=== PATIENT | male | born 1940 | race Caucasian/White ===

== ENCOUNTER 2018-11-28 20:09 | Inpatient (IN) ==
[2018-11-28] MEDS ORDERED: IOPAMIDOL 100 ML BOTTLE IV ONE (20:10)
--- NOTE | 2018-11-28 20:26 | Emergency Department Note ---
Weakness HPI - General Chief complaint: Weakness Stated complaint: weakness and lathargic Time Seen by Provider: 11/28/18 20:11 Source: patient, family, EMS Mode of arrival: EMS Limitations: no limitations - History of Present Illness HPI Narrative: 77-year-old male who was brought in for confusion and weakness by EMS. Had a fever of 103 per the paramedics tympanic thermometer. Notes balance issues and trouble walking. Has history of prior CABG. Confusion noted that he was unable to say his own birthday or know where he was etc. Profoundly tired and wanted to lay down. He is not complaining of pain anywhere and is not having trouble breathing; no cough or congestion - Related Data Home Medications Medication Instructions Recorded Confirmed losartan 50 mg-hydrochlorothiazide 1 tab PO QDAY 04/19/17 11/28/18 12.5 mg tablet aspirin 81 mg tablet 81 mg PO QDAY 05/06/17 11/28/18 atorvastatin 40 mg tablet 40 mg PO QHS tab 05/06/17 11/28/18 cholecalciferol (vitamin D3) 2,000 2,000 unit PO DAILY cap 05/06/17 11/28/18 unit capsule ibuprofen 200 mg tablet 200 mg PO BID tab 05/06/17 11/28/18 metoprolol succinate ER 25 mg 50 mg PO QDAY 05/06/17 11/28/18 tablet,extended release 24 hr saw palmetto 1,200 mg PO BID 05/06/17 11/28/18 spironolactone 25 mg tablet 25 mg PO QDAY 05/06/17 11/28/18 amlodipine 10 mg tablet 5 mg PO HS 02/15/18 11/28/18 doxazosin 1 mg tablet 1 mg PO HS 11/08/18 11/28/18 Fluticasone Propionate [Flonase] 2 spray INTRANASAL DAILYP PRN 11/28/18 11/28/18 metFORMIN HCL [Glucophage Xr] 1,000 mg PO HS 11/28/18 11/28/18 Previous Rx's Medication Instructions Recorded Glucometer #1 ea 05/18/17 blood sugar diagnostic strips See Dose Instructions .ROUTE 07/06/18 .MEDSUPPLY #100 each lancets 30 gauge See Rx Instructions .ROUTE 10/31/18 .COMPLEX #100 unspecified Allergies Allergy/AdvReac Type Severity Reaction Status Date / Time Sulfa (Sulfonamide Allergy Unknown Verified 11/08/18 09:57 Antibiotics) alcohol-topical Allergy Unknown Rash, Uncoded 11/08/18 09:57 itching dairy Allergy Unknown Sneezing Uncoded 11/08/18 09:57 Review of Systems All systems ED: reviewed and negative except as stated. Past Medical History - Past Medical History [facility] Narrative: Family History (Last Updated 05/06/17 @ 13:22 by Emily Ortega) Grandfather Cancer Father Heart attack Mother Hypertension, essential Stroke Sister Hypertension, essential Migraine Son Thyroid disease Medical History (Last Reviewed 02/15/18 @ 09:32 by Milagro Westfall DO) Type 2 diabetes mellitus (Chronic) Chronic rhinitis (Chronic) Obesity (Chronic) Coronary artery disease (Chronic) Hyperlipidemia (Chronic ~1984) Hypertension, essential (Chronic ~1984) Heart trouble (Chronic ~2001) Gallbladder problem (Chronic ~1989) Arthritis (Chronic ~2001) Past Surgical History (Last Updated 05/06/17 @ 13:07 by Emily Ortega) History of cholecystectomy (Chronic) Hx of laparoscopic gastric banding (Chronic) 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 Normocephalic atraumatic. Conjunctive are clear sclerae white and icteric. Extraocular movements are intact pupils are equal round reactive to light. No nasal discharge or congestion. Oropharynx pink and moist. Neck is supple without lymphadenopathy thyromegaly or carotid bruit. Heart is tachycardic but I cannot hear a murmur lungs are clear to auscultation bilaterally but auscultation limited by body habitus. Abdomen is soft nontender nondistended. +1-2 pedal edema bilaterally which is chronic. He is alert but not fully oriented. He can answer some questions but other he defers to his family which is present for the interview and exam Temp probe Bill was placed. Dark yellow urine in the bag Limitations: no limitations Course Vital Signs Temperature 102.2 F H 11/28/18 20:10 Respiratory Rate 26 H 11/28/18 20:10 Blood Pressure 184/66 11/28/18 20:10 Pulse Oximetry (%) 96 11/28/18 20:10 Temperature 102.8 F H 11/28/18 23:28 Pulse Rate 91 H 11/29/18 00:31 Respiratory Rate 25 H 11/29/18 00:31 Blood Pressure 126/59 11/29/18 00:31 Pulse Oximetry (%) 93 11/29/18 00:31 Weakness - Lab Data Lab results reviewed: Yes I reviewed the patient's lab results. Result diagrams: 11/28/18 20:45 11/28/18 20:45 Lab Results 11/28/18 11/28/18 11/28/18 Range/Units 20:45 20:45 20:45 WBC 12.2 H (4.5-11.0) K/mcL RBC 4.15 L (4.50-5.90) M/mcL Hgb 13.5 (13.5-16.5) g/dL Hct 40.0 L (41.0-55.0) % POC Hct 40.0 L (41.0-55.0) % MCV 96.3 (80.0-100.0) fL MCH 32.6 (26.0-34.0) pg MCHC 33.8 (31.0-36.0) g/dL RDW 13.2 (11.5-14.5) % Plt Count 263 (140-440) K/mcL MPV 7.5 (7.4-10.4) fL Gran % 89.2 H (38.0-78.0) % Lymph % (Auto) 4.0 L (15.5-49.0) % [place] % (Auto) 6.6 (1.0-12.0) % Eos % (Auto) 0.2 (0.0-7.0) % Baso % (Auto) 0 (0.0-2.0) % Gran # 10.8 H (1.8-8.0) K/mcL Lymph # (Auto) 0.5 L (1.5-4.8) K/mcL [place] # (Auto) 0.8 (0.1-0.9) K/mcL Eos # (Auto) 0 (0.0-0.7) K/mcL Baso # (Auto) 0 (0.0-0.3) K/mcL VBG Lactic Acid (0.5-2.0) mmol/L POC Sodium 137 (133-145) mmol/L Sodium 136 (133-145) mmol/L POC Potassium 4.0 (3.3-5.1) mmol/L Potassium 4.0 (3.3-5.1) mmol/L POC Chloride 102 (96-108) mmol/L Chloride 98 (96-108) mmol/L Carbon Dioxide 24 (22-30) mmol/L POC Total CO2 24 (22-30) mmol/L Anion Gap 14.0 (8-16) POC BUN 22 (8-23) mg/dl BUN 20 (8-23) mg/dl Creatinine 1.2 (0.7-1.2) mg/dl POC Creatinine 1.2 (0.7-1.2) mg/dl GFR Calculation 59 Glucose 178 H (70-105) mg/dL POC Glucose 183 H (70-105) mg/dL Calcium 8.9 (8.6-10.4) mg/dl POC WB Ioniz Calcium 1.10 L (1.16-1.32) mmol/L Total Bilirubin 0.6 (0.0-1.0) mg/dL AST 39 H (0-37) U/l ALT 45 H (0-40) U/l Alkaline Phosphatase 103 (39-117) U/L Myoglobin 33 (28-72) ng/ml Troponin T < 0.01 (0-0.03) ng/ml Total Protein 7.0 (5.9-8.4) gm/dL Albumin 4.1 (3.2-5.2) gm/dL Globulin 2.9 (2.2-3.7) gm/dL Albumin/Globulin Ratio 1.4 (1.0-2.3) Procalcitonin (<0.10) ng/mL Urine Color Urine Appearance Urine pH (5.0-9.0) Ur Specific [place] (1.000-1.035) Urine Protein (NEG) mg/dL Urine Glucose (UA) (NEG) mg/dL Urine Ketones (NEG) mg/dL Urine Occult Blood (<0.03) mg/dL Urine Nitrate (NEG) Urine Bilirubin (NEG) mg/dL Urine Urobilinogen (NEG) mg/dL Ur Leukocyte Esterase (NEG) /uL Urine RBC (0-1) /hpf Urine WBC (0-4) /hpf Ur Squamous Epith Cells (0-4) /hpf Urine Bacteria (0) /hpf Urine Mucus (0) /hpf Ur Culture Indicated? 11/28/18 11/28/18 11/28/18 Range/Units 20:45 20:45 22:04 WBC (4.5-11.0) K/mcL RBC (4.50-5.90) M/mcL Hgb (13.5-16.5) g/dL Hct (41.0-55.0) % POC Hct (41.0-55.0) % MCV (80.0-100.0) fL MCH (26.0-34.0) pg MCHC (31.0-36.0) g/dL RDW (11.5-14.5) % Plt Count (140-440) K/mcL MPV (7.4-10.4) fL Gran % (38.0-78.0) % Lymph % (Auto) (15.5-49.0) % M[place]one % (Auto) (1.0-12.0) % Eos % (Auto) (0.0-7.0) % Baso % (Auto) (0.0-2.0) % Gran # (1.8-8.0) K/mcL Lymph # (Auto) (1.5-4.8) K/mcL [place] # (Auto) (0.1-0.9) K/mcL Eos # (Auto) (0.0-0.7) K/mcL Baso # (Auto) (0.0-0.3) K/mcL VBG Lactic Acid 1.4 (0.5-2.0) mmol/L POC Sodium (133-145) mmol/L Sodium (133-145) mmol/L POC Potassium (3.3-5.1) mmol/L Potassium (3.3-5.1) mmol/L POC Chloride (96-108) mmol/L Chloride (96-108) mmol/L Carbon Dioxide (22-30) mmol/L POC Total CO2 (22-30) mmol/L Anion Gap (8-16) POC BUN (8-23) mg/dl BUN (8-23) mg/dl Creatinine (0.7-1.2) mg/dl POC Creatinine (0.7-1.2) mg/dl GFR Calculation Glucose (70-105) mg/dL POC Glucose (70-105) mg/dL Calcium (8.6-10.4) mg/dl POC WB Ioniz Calcium (1.16-1.32) mmol/L Total Bilirubin (0.0-1.0) mg/dL AST (0-37) U/l ALT (0-40) U/l Alkaline Phosphatase (39-117) U/L Myoglobin (28-72) ng/ml Troponin T (0-0.03) ng/ml Total Protein (5.9-8.4) gm/dL Albumin (3.2-5.2) gm/dL Globulin (2.2-3.7) gm/dL Albumin/Globulin Ratio (1.0-2.3) Procalcitonin 0.11 (<0.10) ng/mL Urine Color Yellow Urine Appearance Clear Urine pH 5.0 (5.0-9.0) Ur Specific [place] 1.026 (1.000-1.035) Urine Protein 30 A (NEG) mg/dL Urine Glucose (UA) Negative (NEG) mg/dL Urine Ketones Neg (NEG) mg/dL Urine Occult Blood Neg (<0.03) mg/dL Urine Nitrate Neg (NEG) Urine Bilirubin Neg (NEG) mg/dL Urine Urobilinogen Neg (NEG) mg/dL Ur Leukocyte Esterase Neg (NEG) /uL Urine RBC 5 H (0-1) /hpf Urine WBC < 1 (0-4) /hpf Ur Squamous Epith Cells 0 (0-4) /hpf Urine Bacteria 0 (0) /hpf Urine Mucus Few (0) /hpf Ur Culture Indicated? No - Radiology Data Radiology results reviewed: Yes I reviewed the patient's radiology results. Chest x-ray shows scarring of the chest on the left side CT of the head showed no acute abnormality We did not find a source for his infection so CT scan of the chest abdomen and pelvis is ordered with contrast-this showed some assorted abnormal findings but none which account for his high fever on [facility] read - EKG Data EKG attestation: Yes I reviewed and interpreted this EKG. EKG results narrative: EKG shows sinus tachycardia with right bundle branch block left anterior fascicular block. ST depression in V1 through V3 but this could also be LVH with secondary repolarization. ST depression also waiting 1 and aVL which is an terior leads. ST elevation mild in 3 and aVF consistent with possible ischemia per machine read Disposition Pt seen by [employer]/[facility] only: No Clinical Impression: Fever of undetermined origin, Delirium Summary: Concern for tachycardia with EKG abnormalities but he does not have any chest pain. However he is diabetic. Other risk factors include former smoker with known CAD status post CABG. will order chest pain work-up including chest x-ray and lab Unclear what his fever is from but this could be contributing to his confusion and balance issues. We will order CT scan and do sepsis work-up as he does have tachycardia and fever along with altered mental status-certainly meets SIRS criteria. Blood cultures ordered and then we will start antibiotics with Zosyn and vancomycin. Acetaminophen is given for fever. Bill catheter placed CT scan of the head negative for stroke. CT scan chest abdomen pelvis negative for acute cause of fever. Laboratory shows leukocytosis but lactic acid is normal procalcitonin is relatively low. Urine was unremarkable At this point it does look like his altered mental status is delirium from fever of unknown origin. Discussed findings with Dr. Singh, our hospitalist, who agreed the patient needed to be admitted. We will do LP as an inpatient. Disposition: Xfer As Inpt ([facility]) Condition: Fair Referrals: Nain Stoddard PA-C [Primary Care Provider] -
[2018-11-28] MEDS ORDERED: VANCOMYCIN 1,000 MG in 0.9 % SODIUM CHLORIDE 250 ML IV ONE (20:31)
[2018-11-28] MEDS ORDERED: PIPERACILLIN SODIUM/TAZOBACTAM 3.375 GM in DEXTROSE 5% IN WATER 50 ML IV ONE (20:31)
[2018-11-28 20:58] LABS: POC Blood Urea Nitrogen 22 mg/dl (8-23); POC CO2 24 mmol/L (22-30); POC Chloride 102 mmol/L (96-108); POC Creatinine 1.2 mg/dl (0.7-1.2); POC Glucose, Random 183 mg/dL (70-105); POC Sodium 137 mmol/L (133-145)
[2018-11-28 21:39] LABS: Basophils # (Auto) 0 K/mcL (0.0-0.3); Basophils % (Auto) 0 % (0.0-2.0); Eosinophils # (Auto) 0 K/mcL (0.0-0.7); Eosinophils % (Auto) 0.2 % (0.0-7.0); Granulocytes % (Auto) 89.2 % (38.0-78.0); Hemoglobin 13.5 g/dL (13.5-16.5); Lymphocytes # (Auto) 0.5 K/mcL (1.5-4.8); Mean Cell Volume 96.3 fL (80.0-100.0); Mean Corpuscular HGB Conc 33.8 g/dL (31.0-36.0); Mean Platelet Volume 7.5 fL (7.4-10.4); Monocytes # (Auto) 0.8 K/mcL (0.1-0.9); Monocytes % (Auto) 6.6 % (1.0-12.0); Platelet Count 263 K/mcL (140-440); RBC 4.15 M/mcL (4.50-5.90); Red Cell Distribution Width 13.2 % (11.5-14.5); WBC 12.2 K/mcL (4.5-11.0)
[2018-11-28] MEDS ORDERED: LIDOCAINE JEL 2% 1 TUBE 30GM TOPICAL ONE (21:48)
[2018-11-28 22:00] LABS: ALT/SGPT 45 U/l (0-40); AST/SGOT 39 U/l (0-37); Albumin 4.1 gm/dL (3.2-5.2); Albumin/Globulin Ratio 1.4 (1.0-2.3); Alkaline Phosphatase 103 U/L (39-117); Bilirubin,Total 0.6 mg/dL (0.0-1.0); Blood Urea Nitrogen 20 mg/dl (8-23); Calcium 8.9 mg/dl (8.6-10.4); Carbon Dioxide 24 mmol/L (22-30); Chloride 98 mmol/L (96-108); Globulin 2.9 gm/dL (2.2-3.7); Glomerular Filtration Rate 59; Glucose 178 mg/dL (70-105); Myoglobin 33 ng/ml (28-72); Sodium 136 mmol/L (133-145)
[2018-11-28] MEDS ORDERED: ACETAMINOPHEN 1,000 MG/100 ML BOTTLE IV ONE (22:31)
[2018-11-28 22:55] LABS: Appearance,Urine CLEAR; Bacteria,Urine 0 /hpf (0); Bilirubin,Urine NEG (NEG); Color,Urine YELLOW; Culture Indicated,Urine NO; Glucose,Urine (UA) NEGATIVE (NEG); Ketones,Urine NEG (NEG); Leukocyte Esterase,Urine NEG /uL (NEG); Mucus,Urine FEW /hpf (0); Nitrate,Urine NEG (NEG); Protein,Urine 30 mg/dL (NEG); Specific Gravity,Urine 1.026 (1.000-1.035); Urine Blood NEG mg/dL (<0.03); Urine RBC 5 /hpf (0-1); Urine Squamous Epithelial Cell 0 /hpf (0-4); Urine WBC < 1 /hpf (0-4); Urobilinogen,Urine NEG (NEG)
[2018-11-28] MEDS ORDERED: LORazepam 2 MG/ML VIAL IV ONE (23:12)
[2018-11-29] MEDS ORDERED: VANCOMYCIN 500 MG in 0.9 % SODIUM CHLORIDE 100 ML IV ONE ×2 (00:42→01:09)
[2018-11-29 00:46] LABS: POC INR 1.1 (0.9-1.2); POC Pro Time 13.1 sec (11.9-14.5)
--- NOTE | 2018-11-29 00:54 | Internal Med History&Physical ---
Medical - H&P: HPI Patient information: Note initiated : 11/29/18 at 12:49 am Service Date, if different from initiated Date: [] Patient: Matias Arroyo a 77 y/o M admitted on for weakness and lathargic. Chief Complaint: [] History of present illness: Mr. Arroyo is a 77 year old M with history of diabetes coronary artery disease morbid obesity presents to the emergency room today brought in by family for altered mental status and fever. The patient was confused in the emergency room, had also received some Ativan and most of the history was provided by the patient's and his daughters. According to the family the patient was fine yesterday, he slept well but did wake up early in the morning around 3:00 sobbing after having a nightmare. The next morning he was okay but was tired and went to sleep early around 11:00 in the afternoon. He had a nap after waking up he was not himself he was having gait abnormalities, not been able to keep his balance very well, he was acting not normal, not answering to questions appropriately, he forgot to take his morning medications and took all the pills in the evening around 5 PM, he tried to go to sleep early at 6 PM by using just his facemask and not putting on the entire CPAP machine. He was confused febrile and therefore he was brought to the hospital for further evaluation. According to the family patient has not had any other complaints. 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 The patient has not had any sick contacts, the patient denies any photophobia or phonophobia, denies any headache, he denies any recent travel, denies any camping trips, he was outside I believe on Wednesday for a few hours 6-7 according to his daughter in the heat. In the emergency room on presentation patient was febrile, heart rate nearly 103, tachycardic with a heart rate ranging from 100-1 30, respirations ranging from 25-40 blood pressure stable 127/57 on my evaluation saturating 93% on room air. Labs showed WBC count of 12.2 hemoglobin 13.5 platelets 263, lactic acid 1.4 procalcitonin 0.11 sodium 136 potassium 4.0 creatinine 1.2 glucose 178 INR 1.1 UA negative for infection Chest x-ray negative for acute infiltrate Head CT was interpreted as negative by the [facility] Abdomen pelvis and chest CT was done which also was grossly negative according to the [facility] had some mild right side: Thickness possible colitis and some pleural thickening on the left side possible of pleural fibrosis question any malignancy did not appear to be a fluid collection. Given the fact that patient has high-grade fever, confusion tachypnea he does meet the screening for sepsis, however there is no obvious source of infection. He will be admitted to the ICU for further management ROS unobtainable: due to mental status (limited as per HPI rest neg) All systems: reviewed and no additional remarkable complaints except as stated Medical - H&P: PMH Medical history: Medical History (Last Reviewed 02/15/18 @ 09:32 by Milagro Westfall DO) Type 2 diabetes mellitus (Chronic) Chronic rhinitis (Chronic) Obesity (Chronic) Coronary artery disease (Chronic) Hyperlipidemia (Chronic ~1984) Hypertension, essential (Chronic ~1984) Heart trouble (Chronic ~2001) Gallbladder problem (Chronic ~1989) Arthritis (Chronic ~2001) Surgical history: Past Surgical History (Last Updated 05/06/17 @ 13:07 by Emily Ortega) History of cholecystectomy (Chronic) Hx of laparoscopic gastric banding (Chronic) 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) Pertinent family history: Family History (Last Updated 05/06/17 @ 13:22 by Emily Ortega) Grandfather Cancer Father Heart attack Mother Hypertension, essential Stroke Sister Hypertension, essential Migraine Son Thyroid disease Medical - H&P: Meds Home Medications Medication Instructions Recorded Confirmed Type losartan 50 mg-hydrochlorothiazide 1 tab PO QDAY 04/19/17 11/28/18 History 12.5 mg tablet aspirin 81 mg tablet 81 mg PO QDAY 05/06/17 11/28/18 History atorvastatin 40 mg tablet 40 mg PO QHS tab 05/06/17 11/28/18 History cholecalciferol (vitamin D3) 2,000 2,000 unit PO DAILY cap 05/06/17 11/28/18 History unit capsule ibuprofen 200 mg tablet 200 mg PO BID tab 05/06/17 11/28/18 History metoprolol succinate ER 25 mg 50 mg PO QDAY 05/06/17 11/28/18 History tablet,extended release 24 hr saw palmetto 1,200 mg PO BID 05/06/17 11/28/18 History spironolactone 25 mg tablet 25 mg PO QDAY 05/06/17 11/28/18 History Glucometer #1 ea 05/18/17 11/08/18 Rx amlodipine 10 mg tablet 5 mg PO HS 02/15/18 11/28/18 History blood sugar diagnostic strips See Dose Instructions .ROUTE 07/06/18 11/08/18 Rx .MEDSUPPLY #100 each lancets 30 gauge See Rx Instructions .ROUTE 10/31/18 11/28/18 Rx .COMPLEX #100 unspecified doxazosin 1 mg tablet 1 mg PO HS 11/08/18 11/28/18 History Fluticasone Propionate [Flonase] 2 spray INTRANASAL DAILYP PRN 11/28/18 11/28/18 History metFORMIN HCL [Glucophage Xr] 1,000 mg PO HS 11/28/18 11/28/18 History Allergies Allergy/AdvReac Type Severity Reaction Status Date / Time Sulfa (Sulfonamide Allergy Unknown Verified 11/08/18 09:57 Antibiotics) alcohol-topical Allergy Unknown Rash, Uncoded 11/08/18 09:57 itching dairy Allergy Unknown Sneezing Uncoded 11/08/18 09:57 Medical - H&P: Exam - Constitutional Vitals: Temp Pulse Resp BP Pulse Ox 102.8 F H 91 H 25 H 126/59 93 11/28/18 23:28 11/29/18 00:31 11/29/18 00:31 11/29/18 00:31 11/29/18 00:31 Exam: GENERAL: The patient is a well-developed, well-nourished in no apparent distress. Is alert and oriented x1. Morbidly obese VITAL SIGNS: Reviewed and as noted elsewhere. HEENT: Head is normocephalic and atraumatic. Extraocular muscles are intact. Pupils are equal, round, and reactive to light. Nares appeared normal. Mouth appears any without lesions. Mucous membranes are dry. NECK: Normal to inspection, Supple, No lymphadenopathy or thyromegaly. LUNGS: Air entry equal on both sides, no wheezing, crackles or rhonchi noted. No accessory muscles of respiration HEART: Regular rate and rhythm normal, S1 and S2 heard, no Gallop, S3 or Rub Noted, No Gross murmur heard. ABDOMEN: Soft, nontender, and nondistended. Positive bowel sounds. No hepatosplenomegaly was noted. Large pannus EXTREMITIES: No cyanosis, clubbing, rash, lesions or edema. No swelling of either knee of ankle joint to suggest infection. NEUROLOGIC: Cranial nerves II through XII are grossly intact. Motor and Sensory System Grossly Intact, no spinal tenderness, no neck stiffness, burdunzki sign negative. PSYCHIATRIC: Normal affect, confused SKIN: No ulceration or wounds noted, No jaundice, No rash noted. Medical - H&P: Reslt - Labs CBC & Chem 7: 11/28/18 20:45 11/28/18 20:45 Labs: Short CBC 11/28/18 Range/Units 20:45 WBC 12.2 H (4.5-11.0) K/mcL Hgb 13.5 (13.5-16.5) g/dL Hct 40.0 L (41.0-55.0) % Plt Count 263 (140-440) K/mcL BMP 11/28/18 20:45 Sodium 136 Potassium 4.0 Chloride 98 Carbon Dioxide 24 BUN 20 Creatinine 1.2 Glucose 178 H Calcium 8.9 Cardiac Enzymes 11/28/18 Range/Units 20:45 Troponin T < 0.01 (0-0.03) ng/ml Liver Function 11/28/18 Range/Units 20:45 Total Bilirubin 0.6 (0.0-1.0) mg/dL AST 39 H (0-37) U/l ALT 45 H (0-40) U/l Alkaline Phosphatase 103 (39-117) U/L Albumin 4.1 (3.2-5.2) gm/dL Urine 11/28/18 Range/Units 22:04 Urine Color Yellow Urine Appearance Clear Urine pH 5.0 (5.0-9.0) Ur Specific [place] 1.026 (1.000-1.035) Urine Protein 30 A (NEG) mg/dL Urine Glucose (UA) Negative (NEG) mg/dL Medical - H&P: A/P - Narrative A/P Narrative: A/P Fever -Etiology unknow, colitis? -Blood and urine cultures have been sent, IV vancomycin and Zosyn for now. -Low suspicion for meningitis given lack of headache no neck tenderness no neck stiffness Brudzinski sign negative, however will consider getting her LP in the morning at this point in time given the patient's confusion lack of cooperation and is heavy body habitus it would not be possible for us to get one tonight. -viral panel to be sent. SIRS -workup, IV fluids Morbid Obesity bmi 46 -outpatient management DM -SSI insulin for glucose control CAD, s/p bypass -Trop neg, EKG has some changes, non specific, likely related to stress, resume home meds, which include statin, bb and asa HTN -BP stable, Resume home meds once remains stable x 24 hrs DVT SCD Full code Carb consistent, cardiac diet Social History - Social History marital status: - Tobacco smoking status: Former smoker - Alcohol alcohol intake frequency: a few times a month - Substance use substance use type: does not use
[2018-11-29] MEDS ORDERED: IBUPROFEN 600 MG TABLET PO ONE ×2 (01:09→01:23)
[2018-11-29] MEDS ORDERED: NALOXONE HCL 0.4 MG/ML VIAL IV PRN (01:09)
[2018-11-29] MEDS ORDERED: OLANZapine 10 MG VIAL IM PRN (01:09)
[2018-11-29] MEDS ORDERED: HYDROmorphone 2 MG/ML VIAL IV PRN (01:09)
[2018-11-29] MEDS ORDERED: IPRATROPIUM/ALBUTEROL 3 ML AMPUL.NEB NEB PRN (01:09)
[2018-11-29] MEDS ORDERED: DEXTROSE 50% 50 ML VIAL IV PRN (01:09)
[2018-11-29] MEDS ORDERED: DEXTROSE 31 GM ORAL.SUSP PO PRN (01:09)
[2018-11-29] MEDS ORDERED: ONDANSETRON 4 MG/2 ML VIAL IV PRN (01:09)
[2018-11-29] MEDS ORDERED: PROMETHAZINE 25 MG/ML VIAL IV PRN (01:09)
[2018-11-29] MEDS ORDERED: VANCOMYCIN PER PHARMACY IV ONE (01:09)
[2018-11-29] MEDS: LACTATED RINGERS 1,000 ML IV SCH ×3 (01:27→05:30)
[2018-11-29] MEDS: PIPERACILLIN SODIUM/TAZOBACTAM 3.375 GM in DEXTROSE 5% IN WATER 50 ML IV SCH ×4 (02:14→18:00)
[2018-11-29] MEDS: 0.9 % SODIUM CHLORIDE 10 ML SYRINGE IV SCH ×3 (05:31→21:02)
[2018-11-29 06:01] LABS: Basophils # (Auto) 0 K/mcL (0.0-0.3); Basophils % (Auto) 0 % (0.0-2.0); Eosinophils # (Auto) 0 K/mcL (0.0-0.7); Eosinophils % (Auto) 0 % (0.0-7.0); Granulocytes % (Auto) 88.5 % (38.0-78.0); Hematocrit 34.9 % (41.0-55.0); Hemoglobin 11.9 g/dL (13.5-16.5); Lymphocytes # (Auto) 0.6 K/mcL (1.5-4.8); Lymphocytes % (Auto) 5.7 % (15.5-49.0); Mean Corpuscular HGB Conc 34.1 g/dL (31.0-36.0); Mean Platelet Volume 7.7 fL (7.4-10.4); Monocytes # (Auto) 0.6 K/mcL (0.1-0.9); Monocytes % (Auto) 5.8 % (1.0-12.0); Platelet Count 199 K/mcL (140-440); Red Cell Distribution Width 13.5 % (11.5-14.5); WBC 10.9 K/mcL (4.5-11.0)
--- NOTE | 2018-11-29 06:02 | Cat Scan Report ---
CLINICAL INFORMATION: Fever of unknown origin TECHNIQUE: Axial images through the chest, abdomen, pelvis. 90 mL intravenous contrast material administered. Oral contrast material was not given COMPARISON: Chest x-ray dated 11/28/2018 FINDINGS: CHEST: Previous median sternotomy. Multiple surgical clips consistent with coronary artery bypass procedure No parenchymal consolidation. No evidence for pneumonia. There is mild left lower lobe parenchymal density is probably atelectasis. There is minimal left pleural thickening or fluid. There is mild left pleural calcification. This ABG asbestos exposure or scarring from previous inflammatory disease. No pathologic mediastinal or hilar adenopathy. There is no axillary or supraclavicular adenopathy. No evidence for discitis. No detectable epidural abnormality. There is no paraspinal mass. ABDOMEN AND PELVIS: Negative liver. No focal intrahepatic abnormality. No hepatic abscess. There are surgical clips in the gallbladder fossa. No dilated bile ducts. Spleen is not enlarged. Normal enhancement of splenic and portal veins. Pancreas is negative. There is no pancreatic mass. No evidence for pancreatitis. Adrenal glands are negative. Kidneys are negative. No solid or cystic mass. No hydronephrosis. There is no hydroureter. There is a Bill catheter within the urinary bladder. Patient has had a previous laparoscopic banding procedure for weight loss. Colon is negative. No diverticulitis. There is no appendicitis. No detectable colonic mass. Small bowel is not distended. No mechanical small bowel obstruction. There is no mesenteric abnormality. No free pelvic fluid. No intra-abdominal abscess. No pneumoperitoneum. There is no biliary or portal venous gas. Patient apparently is febrile. There is no subcutaneous abnormality. At the site of the LAP-BAND catheter there is no subcutaneous abscess. There is calcification of the abdominal aorta. No abdominal aortic aneurysm. Lumbar spine, sacrum, pelvis are negative. Examination was initially interpreted by [facility] IMPRESSION: 1. Mild left lower lobe parenchymal density most consistent with atelectasis 2. Minimal left pleural thickening. There is left pleural calcification which is chronic 3. No acute intra-abdominal abnormality. Etiology of this patient's fever is not determined Interpreted and Authenticated by: Dante Krishnan 11/29/18
--- NOTE | 2018-11-29 06:06 | XRay Report ---
CLINICAL INFORMATION: Fever, weakness, lethargy TECHNIQUE: AP portable semiupright chest x-ray COMPARISON: None. FINDINGS: Previous median sternotomy. Multiple surgical clips consistent with coronary artery bypass procedure Lungs are negative. No parenchymal infiltrate or mass. No focal abnormality. No evidence for significant pleural effusion. No acute or focal abnormality IMPRESSION: No acute abnormality Interpreted and Authenticated by: Dante Krishnan 11/29/18
--- NOTE | 2018-11-29 06:10 | Cat Scan Report ---
CLINICAL INFORMATION: Lethargy. Weakness. Fever. COMPARISON: None. TECHNIQUE: Axial noncontrast-enhanced images through the brain. Sagittal and coronal reformatted images FINDINGS: No acute intracranial hemorrhage. No intra-axial hematoma. No focal intra-axial attenuation abnormality. No localized mass effect. No midline shift. Brain volume is within normal limits for age. Brainstem and cerebellum are negative. No extra-axial, intracranial abnormality. Basilar cisterns are normal. No calvarial lesions. No lytic lesion. There is no calvarial fracture. Mild mucosal thickening within ethmoid sinuses. There is a small amount of thick fluid within the dependent portion of left maxillary sinus consistent with inflammatory disease. Temporal bones are negative Examination was initially interpreted by [facility] IMPRESSION: 1. Mild inflammatory change within paranasal sinuses 2. No intracranial abnormality The exam was performed using radiation dose optimization techniques including, but not limited to, automated exposure control, adjustment of the mA and/or kV according to patient size and use of iterative reconstruction technique. Interpreted and Authenticated by: Dante Krishnan 11/29/18
[2018-11-29 06:13] LABS: ALT/SGPT 66 U/l (0-40); AST/SGOT 66 U/l (0-37); Albumin 3.5 gm/dL (3.2-5.2); Albumin/Globulin Ratio 1.4 (1.0-2.3); Alkaline Phosphatase 92 U/L (39-117); Bilirubin,Direct < 0.2 mg/dL (0.0-0.3); Bilirubin,Total 0.6 mg/dL (0.0-1.0); Blood Urea Nitrogen 19 mg/dl (8-23); Calcium 8.3 mg/dl (8.6-10.4); Carbon Dioxide 22 mmol/L (22-30); Chloride 101 mmol/L (96-108); Globulin 2.5 gm/dL (2.2-3.7); Glomerular Filtration Rate 59; Glucose 172 mg/dL (70-105); Lactate Dehydrogenase 255 U/L (94-250); Magnesium 1.8 mg/dL (1.6-2.5); Phosphorous 3.1 mg/dL (2.7-4.5); Potassium 3.7 mmol/L (3.3-5.1); Sodium 137 mmol/L (133-145); Triglycerides 56 mg/dl (<150); Uric Acid 4.6 mg/dL (2.5-8.0)
[2018-11-29 06:14] LABS: C-Reactive Protein 4.5 mg/dl (0.0-0.8)
[2018-11-29] MEDS ORDERED: VANCOMYCIN PER PHARMACY IV SCH (06:15)
[2018-11-29] MEDS ORDERED: POTASSIUM CHLORIDE 20 MEQ PACKET PO ONE (07:28)
[2018-11-29] MEDS ORDERED: METOPROLOL SUCCINATE 25 MG TAB.XL.24H PO SCH (09:00)
[2018-11-29] MEDS ORDERED: LIDOCAINE 1% 20 ML VIAL SQ ONE (09:33)
[2018-11-29] MEDS: ACETAMINOPHEN 325 MG TABLET PO PRN ×2 (09:57→18:56)
[2018-11-29] MEDS: ASPIRIN 81 MG TAB.CHEW PO SCH (09:58)
[2018-11-29] MEDS: INSULIN LISPRO 1 UNIT/0.01 ML UNIT SQ SCH ×4 (09:58→20:53)
[2018-11-29] MEDS: DOCUSATE SODIUM 100 MG CAPSULE PO SCH ×2 (10:01→20:38)
[2018-11-29] MEDS: VANCOMYCIN 1,500 MG in 0.9 % SODIUM CHLORIDE 500 ML IV SCH ×2 (10:01→21:01)
[2018-11-29] MEDS ORDERED: IBUPROFEN 200 MG TABLET PO ONE (10:54)
--- NOTE | 2018-11-29 10:57 | Internal Med Progress Note ---
Medical - PN: Subj Patient information: Note initiated : 11/29/18 at 10:55 am Service Date, if different from initiated Date: [] Patient: Matias Arroyo a 77 y/o M admitted on 11/29/18 for weakness and lathargic. Chief Complaint: [] Interval history: Mr. Arroyo is a 77 year old M with history of diabetes coronary artery disease morbid obesity presents to the emergency room today brought in by family for altered mental status and fever. The patient was confused in the emergency room, had also received some Ativan and most of the history was provided by the patient's and his daughters. According to the family the patient was fine yesterday, he slept well but did wake up early in the morning around 3:00 sobbing after having a nightmare. The next morning he was okay but was tired and went to sleep early around 11:00 in the afternoon. He had a nap after waking up he was not himself he was having gait abnormalities, not been able to keep his balance very well, he was acting not normal, not answering to questions appropriately, he forgot to take his morning medications and took all the pills in the evening around 5 PM, he tried to go to sleep early at 6 PM by using just his facemask and not putting on the entire CPAP machine. He was confused febrile and therefore he was brought to the hospital for further evaluation. According to the family patient has not had any other complaints. 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 The patient has not had any sick contacts, the patient denies any photophobia or phonophobia, denies any headache, he denies any recent travel, denies any camping trips, he was outside I believe on Wednesday for a few hours 6-7 according to his daughter in the heat. In the emergency room on presentation patient was febrile, heart rate nearly 103, tachycardic with a heart rate ranging from 100-1 30, respirations ranging from 25-40 blood pressure stable 127/57 on my evaluation saturating 93% on room air. Labs showed WBC count of 12.2 hemoglobin 13.5 platelets 263, lactic acid 1.4 procalcitonin 0.11 sodium 136 potassium 4.0 creatinine 1.2 glucose 178 INR 1.1 UA negative for infection Chest x-ray negative for acute infiltrate Head CT was interpreted as negative by the [facility] Abdomen pelvis and chest CT was done which also was grossly negative according to the [facility] had some mild right side: Thickness possible colitis and some pleural thickening on the left side possible of pleural fibrosis question any malignancy did not appear to be a fluid collection. Given the fact that patient has high-grade fever, confusion tachypnea he does meet the screening for sepsis, however there is no obvious source of infection. He will be admitted to the ICU for further management 11/29 Patient seen and examined, sitting comfortably in bed, had a large bowel movement Fever was better this morning however fever is creeping back up again. Confusion is better however does not appear to be at baseline. Has no complaints no headache chest pain shortness of breath no fever no abdominal pain Will proceed with a lumbar puncture today Pertinent ROS: Denies headache, dizziness Denies chest pain, palpitations Denies cough or shortness of breath Denies abdominal pain, nausea or vomiting. - Constitutional Vitals: Vital Signs Temp Pulse Resp BP Pulse Ox 101.0 F H 81 19 114/69 100 11/29/18 09:57 11/29/18 05:01 11/29/18 06:01 11/29/18 06:01 11/29/18 05:01 Period Temp Pulse Resp BP Sys/Alva Pulse Ox Last 24 Hr 97.6 F-102.8 F 76-116 14-43 107-196/52-136 91-100 Intake and Output 11/28/18 11/29/18 11/29/18 21:59 05:59 13:59 Intake Total 50 3000 Output Total 1050 290 Balance 50 1950 -290 Weight 339 lb 330 lb Intake & Output: Intake & Output 11/28/18 11/29/18 11/29/18 21:59 05:59 13:59 Intake Total 50 3000 Output Total 1050 290 Balance 50 1950 -290 Weight 339 lb 330 lb Intake: IV 50 2500 Lactated Ringers 1,000 ml @ 500 2000 mls/hr IV .Q2H [facility] Rx#: [id number] Zosyn 3.375 gm In Dextrose 5% 50 50 in Water 50 ml @ 100 mls/hr IV Q6H [facility] Rx#:[id number] Vancomycin 500 mg In Sodium 100 Chloride 0.9% 100 ml @ 100 mls/ hr IV ONCE ONE Rx#:[id number] Vancomycin 1,000 mg In Sodium 250 Chloride 0.9% 250 ml @ 250 mls/ hr IV ONCE ONE Rx#:[id number] Oral 500 Output: Urine Catheter Amount 1050 290 Other: Percent of Meal Consumed sandwich Feeding Ability Independent Urine Appearance Clear Uretheral (Bill) Clear Urine Color Bright Yellow Uretheral (Bill) Dark Natalie Urine Odor Uretheral (Bill) Strong Exam: Constitutional; Afebrile, cooperative, alert, not in distress. Respiratory system: Air Entry equal on both sides, No crackles or wheezing, no rhonchi. CVS- Rate rhythm regular, S1,S2 heard, no gallop, no rub. Abdomen- Soft nontender abdomen, no organomegaly, no tenderness, no guarding or rigidity, [employer]- AOOx3, moving all extremities, no gross focal deficit noted. Medical - PN: Obj Da - Labs CBC & Chem 7: 11/29/18 03:22 11/29/18 03:22 Labs: Abnormal Lab Results 11/29/18 11/29/18 11/29/18 03:22 03:22 03:22 WBC RBC 3.60 L Hgb 11.9 L Hct 34.9 L POC Hct Gran % 88.5 H Lymph % (Auto) 5.7 L Gran # 9.6 H Lymph # (Auto) 0.6 L ESR Glucose 172 H POC Glucose Calcium 8.3 L POC WB Ioniz Calcium AST 66 H ALT 66 H Lactate Dehydrogenase 255 H C-Reactive Protein 4.5 H Urine Protein Urine RBC 11/29/18 11/28/18 11/28/18 03:22 22:04 20:45 WBC RBC Hgb Hct POC Hct 40.0 L Gran % Lymph % (Auto) Gran # Lymph # (Auto) ESR 33 H Glucose 178 H POC Glucose 183 H Calcium POC WB Ioniz Calcium 1.10 L AST 39 H ALT 45 H Lactate Dehydrogenase C-Reactive Protein Urine Protein 30 A Urine RBC 5 H 11/28/18 20:45 WBC 12.2 H RBC 4.15 L Hgb Hct 40.0 L POC Hct Gran % 89.2 H Lymph % (Auto) 4.0 L Gran # 10.8 H Lymph # (Auto) 0.5 L ESR Glucose POC Glucose Calcium POC WB Ioniz Calcium AST ALT Lactate Dehydrogenase C-Reactive Protein Urine Protein Urine RBC Meds: Medications Acetaminophen (Tylenol) 650 mg PO Q4-6HP PRN PRN Reason: PAIN/FEVER > 101 Last Admin: 11/29/18 09:57 Dose: 650 mg Documented by: Albuterol/Ipratropium (Duoneb) 3 ml NEB Q4HP PRN PRN Reason: Wheezing Aspirin (Aspirin) 81 mg PO DAILY [facility] Last Admin: 11/29/18 09:58 Dose: 81 mg Documented by: Atorvastatin Calcium (Lipitor) 40 mg PO QHS [facility] Dextrose (Dextrose 50%) 0 ml IV UD PRN PRN Reason: Hypoglycemia Diagnostic Test (Pha) (Accu-Chek) 1 each FS ACHS [facility] Last Admin: 11/29/18 07:30 Dose: 1 each Documented by: Docusate Sodium (Colace) 100 mg PO BID [facility] Last Admin: 11/29/18 10:01 Dose: Not Given Documented by: Doxazosin Mesylate (Cardura) 1 mg PO HS SASHA Famotidine (Pepcid) 20 mg IV HS SASHA Glucose (Insta-Glucose) 15 gm PO PRN PRN PRN Reason: Hypoglycemia Hydromorphone HCl (Dilaudid) 0.5 mg IV Q2HP PRN PRN Reason: PAIN LEVEL > 6 Piperacillin Sod/Tazobactam (Sod 3.375 gm/ Dextrose) 50 mls @ 100 mls/hr IV Q6H [facility]; Protocol Last Admin: 11/29/18 06:11 Dose: 100 mls/hr Documented by: Vancomycin HCl 1,500 mg/ (Sodium Chloride) 500 mls @ 333.3 mls/hr IV Q12H [facility] Last Admin: 11/29/18 10:01 Dose: 333.3 mls/hr Documented by: Insulin Human Lispro (Humalog) 0 unit SQ ACHS [facility]; Protocol Last Admin: 11/29/18 09:58 Dose: 1 units Documented by: Metoprolol Succinate (Toprol Xl) 50 mg PO QDAY [facility] Last Admin: 11/29/18 09:58 Dose: 50 mg Documented by: Naloxone HCl (Narcan) 0.1 mg IV Q2MIN PRN PRN Reason: Opiate Reversal Olanzapine (Zyprexa) 5 mg IM Q2HP PRN PRN Reason: Agitation Ondansetron HCl (Zofran) 4 mg IV Q4-6HP PRN PRN Reason: Nausea And Vomiting Promethazine HCl (Phenergan) 12.5 mg IV Q4-6HP PRN PRN Reason: Nausea And Vomiting Sodium Chloride (Saline Flush) 10 ml IV Q8 [facility] Last Admin: 11/29/18 05:31 Dose: Not Given Documented by: Vancomycin HCl (Vancomycin Per Pharmacy) 1 order IV UD [facility]; Protocol Vitamin D (Vitamin D3) 2,000 unit PO DAILY [facility] Medical - PN: A/P - Time Spent With Patient Total time spent is greater than 50% in coordination of care (as documented) at patient's floor/unit and/or counseling patient: - Narrative A/P Narrative: A/P Fever -Etiology unknown at this time, cultures eng so far -Blood and urine cultures have been sent, IV vancomycin and Zosyn for now. -viral panel neg -LP ordered, though low suspicion SIRS - workup as above Morbid Obesity bmi 46 -outpatient management DM -SSI insulin for glucose control CAD, s/p bypass -Trop neg, EKG has some changes, non specific, likely related to stress, resume home meds, which include statin, bb and asa HTN -BP stable, Resume home meds once remains stable x 24 hrs DVT SCD Full code Carb consistent, cardiac diet Medical - PN: Qual - Stroke Symptom Onset Unknown: No - VTE Deep Vein Thrombosis/Pulmonary Embolism Present on Admission: No
[2018-11-29 11:15] LABS: Glucose,CSF 107 mg/dL (45-75); Total Protein,CSF 64 mg/dL (15.0-60.0)
--- NOTE | 2018-11-29 11:21 | XRay Report ---
CLINICAL INFORMATION: Fever of unknown origin. Mental status change TECHNIQUE: Informed consent was obtained. Routine skin cleansing performed with Betadine. 1% lidocaine injected. An 18-gauge spinal needle was utilized. Lumbar puncture performed at L2. 8 mL clear CSF. A minute 1 second fluoroscopy utilized. IMPRESSION: Fluoroscopic-guided lumbar puncture Interpreted and Authenticated by: Dante Krishnan 11/29/18
[2018-11-29] MEDS: VITAMIN D3 1,000 UNIT TABLET PO SCH (12:01)
[2018-11-29 12:35] LABS: Appearance,CSF CLEAR; Nucleated Cells,CSF 15 /cumm (0-5); Red Blood Cell,CSF 441 /cumm (0-1)
[2018-11-29 13:03] LABS: Appearance,CSF CLEAR; Lymphocytes,CSF 21 % (40-80); Monocytes,CSF 8 % (15-45); Neutrophils,CSF 3 % (0-6); Nucleated Cells,CSF 2 /cumm (0-5); Red Blood Cell,CSF 64 /cumm (0-1); Total Cell Ct,CSF 32
[2018-11-29] MEDS: amLODIPine 10 MG TABLET PO SCH ×2 (19:57→20:31)
[2018-11-29] MEDS: DOXAZOSIN 1 MG TABLET PO SCH ×2 (19:57→20:38)
[2018-11-29] MEDS: ATORVASTATIN 20 MG TABLET PO SCH ×2 (20:30→20:43)
[2018-11-29] MEDS ORDERED: FAMOTIDINE/PF 20 MG/2 ML VIAL IV SCH (21:00)
[2018-11-29] MEDS ORDERED: THIAMINE 100 MG TABLET PO SCH (21:00)
[2018-11-29] MEDS ORDERED: amLODIPine 10 MG TABLET PO SCH (21:00)
[2018-11-29] MEDS ORDERED: DOXAZOSIN 1 MG TABLET PO SCH (21:00)
[2018-11-30] MEDS: PIPERACILLIN SODIUM/TAZOBACTAM 3.375 GM in DEXTROSE 5% IN WATER 50 ML IV SCH ×6 (05:16→23:57)
[2018-11-30] MEDS: 0.9 % SODIUM CHLORIDE 10 ML SYRINGE IV SCH ×3 (05:20→21:06)
[2018-11-30] MEDS: ACETAMINOPHEN 325 MG TABLET PO PRN (05:24)
[2018-11-30 05:37] LABS: Basophils # (Auto) 0 K/mcL (0.0-0.3); Basophils % (Auto) 0.2 % (0.0-2.0); Eosinophils # (Auto) 0 K/mcL (0.0-0.7); Eosinophils % (Auto) 0.2 % (0.0-7.0); Granulocytes % (Auto) 83.9 % (38.0-78.0); Hematocrit 37.2 % (41.0-55.0); Hemoglobin 12.6 g/dL (13.5-16.5); Lymphocytes # (Auto) 0.9 K/mcL (1.5-4.8); Lymphocytes % (Auto) 9.3 % (15.5-49.0); Mean Cell Volume 97.2 fL (80.0-100.0); Mean Corpuscular HGB Conc 33.8 g/dL (31.0-36.0); Mean Platelet Volume 7.8 fL (7.4-10.4); Monocytes # (Auto) 0.6 K/mcL (0.1-0.9); Monocytes % (Auto) 6.4 % (1.0-12.0); Platelet Count 205 K/mcL (140-440); RBC 3.83 M/mcL (4.50-5.90); Red Cell Distribution Width 13.5 % (11.5-14.5)
[2018-11-30 05:58] LABS: ALT/SGPT 122 U/l (0-40); AST/SGOT 80 U/l (0-37); Albumin 3.5 gm/dL (3.2-5.2); Albumin/Globulin Ratio 1.1 (1.0-2.3); Alkaline Phosphatase 108 U/L (39-117); Bilirubin,Direct 0.3 mg/dL (0.0-0.3); Blood Urea Nitrogen 14 mg/dl (8-23); Calcium 8.5 mg/dl (8.6-10.4); Carbon Dioxide 20 mmol/L (22-30); Chloride 99 mmol/L (96-108); Globulin 3.1 gm/dL (2.2-3.7); Glomerular Filtration Rate 65; Glucose 158 mg/dL (70-105); Lactate Dehydrogenase 281 U/L (94-250); Magnesium 1.7 mg/dL (1.6-2.5); Phosphorous 1.9 mg/dL (2.7-4.5); Potassium 3.7 mmol/L (3.3-5.1); Sodium 136 mmol/L (133-145); Triglycerides 108 mg/dl (<150); Uric Acid 3.5 mg/dL (2.5-8.0)
[2018-11-30] MEDS: INSULIN LISPRO 1 UNIT/0.01 ML UNIT SQ SCH ×4 (07:00→21:03)
[2018-11-30] MEDS: VITAMIN D3 1,000 UNIT TABLET PO SCH (08:08)
[2018-11-30] MEDS: DOCUSATE SODIUM 100 MG CAPSULE PO SCH ×2 (08:08→21:05)
[2018-11-30] MEDS: ASPIRIN 81 MG TAB.CHEW PO SCH (08:08)
[2018-11-30] MEDS: VANCOMYCIN 1,500 MG in 0.9 % SODIUM CHLORIDE 500 ML IV SCH ×2 (10:00→21:01)
--- NOTE | 2018-11-30 10:49 | Infectious Disease Consult ---
History of Present Illness Patient information: Note initiated : 11/30/18 at 10:46 am Service Date, if different from initiated Date: [] Patient: Matias Arroyo 77 y/o M admitted on 11/29/18 for weakness and lathargic. Chief Complaint: [] Consult date: 11/30/18 Requesting Physician: Sergey Singh Reason for Consult: Fever x 3 days Chief complaint: I was confused History of present illness: 77 year old man was admitted to [facility] on 11/28 after being brought by family for confusion, and fevre. Pt reports that he was fine the day before and doesnot know what happened the day after. He was little drowsy and could not walk straight the nex morning. He also noticed feeling hot and has been sneezing in am for last few days. He endorsed pain on left side of face, denied any nasal stuffing or yellow colored drainage. Denied any cough, SOB, chest pain, n/v, diarrhea. Pt denied any sick contacts. He denied any international travel. In ER: patient was febrile at 102.2F, HR 96, BP 184/66, RR 26, satting 96% on RA. WBC 12.2 hemoglobin 13.5 platelets 263, lactic acid 1.4 procalcitonin 0.11 sodium 136 potassium 4.0 creatinine 1.2. UA neg for nitrites, WBC esterase. Chest x-ray negative for acute infiltrate. CT head showed some mucosal thickening in ethmoid sinuses, and small amount of thick fluid in dependent portion of left maxillary sinus. CT chest/abd/pelvis showed left side atlectesis, pleural thickening. 2 sets of blood Cx and urine Cx sent. Pt was started on IV Vanc and IV Zosyn. His fever during the hospital stay has been episodic and had come down. On 11/29 he underwent LP with preliminary CSF analysis s/o mildly elev glucose and slightly elev protein with 2 WBC in CSF. All Cx have been NGTD. At time of visit today, he felt completely back to baseline. Endorsed some loose consistency of stools (pudding like, confirmed by nursing) 3-4 times/day. C/o left testicular pain, says that it was crushed in an accident many years ago. Denied any burning while urination, flank pain, belly pain, SOB. He has been using CPAP at night. His sister in law at bedside also confirmed that he is back to baseline mentally. Review of Systems All systems PM: reviewed and no additional remarkable complaints except as stated Past History Past medical history: Type 2 diabetes mellitus Chronic rhinitis Obesity Coronary artery disease s/p CABG Hyperlipidemia Hypertension Osteoarthritis of multiple joints Past surgical history: History of cholecystectomy Hx of laparoscopic gastric banding S/P coronary artery bypass graft x 5 Past family history: no history of sick contacts in family Past social history: lives in [place] Former smoker Medications and Allergies Home Medications Medication Instructions Recorded Confirmed Type losartan 50 mg-hydrochlorothiazide 1 tab PO QDAY 04/19/17 11/28/18 History 12.5 mg tablet aspirin 81 mg tablet 81 mg PO QDAY 05/06/17 11/28/18 History atorvastatin 40 mg tablet 40 mg PO QHS tab 05/06/17 11/28/18 History cholecalciferol (vitamin D3) 2,000 2,000 unit PO DAILY cap 05/06/17 11/28/18 History unit capsule ibuprofen 200 mg tablet 200 mg PO BID tab 05/06/17 11/28/18 History metoprolol succinate ER 25 mg 50 mg PO QDAY 05/06/17 11/28/18 History tablet,extended release 24 hr saw palmetto 1,200 mg PO BID 05/06/17 11/28/18 History spironolactone 25 mg tablet 25 mg PO QDAY 05/06/17 11/28/18 History amlodipine 10 mg tablet 5 mg PO HS 02/15/18 11/28/18 History lancets 30 gauge See Rx Instructions .ROUTE 10/31/18 11/28/18 Rx .COMPLEX #100 unspecified doxazosin 1 mg tablet 1 mg PO HS 11/08/18 11/28/18 History Fluticasone Propionate [Flonase] 2 spray INTRANASAL DAILYP PRN 11/28/18 11/28/18 History metFORMIN HCL [Glucophage Xr] 1,000 mg PO HS 11/28/18 11/28/18 History Blood Sugar Diagnostic [Evencare 1 strip .ROUTE DAILY 11/29/18 11/29/18 History Mini Glucose Test Str] Blood-Glu Meter,Cont/Transmit 1 each MISC DAILY 11/29/18 11/29/18 History [Guardian Real-Time Glu Monitor] Allergies Allergy/AdvReac Type Severity Reaction Status Date / Time Sulfa (Sulfonamide Allergy Unknown Unknown Verified 11/29/18 10:55 Antibiotics) alcohol AdvReac Mild Rash, Verified 11/29/18 05:56 topical Milk Containing Products AdvReac Mild Sneezing Verified 11/29/18 05:56 Physical Examination Vital signs: Temp Pulse Resp BP Pulse Ox 37.0 C 99 H 23 H 145/92 96 11/30/18 09:02 11/30/18 09:02 11/30/18 09:31 11/30/18 09:10 11/30/18 09:02 General appearance: no acute distress Eyes pulmonary: nonicteric ENT: oropharynx moist, other (no thrush, no oral sores, has mild tenderness over left maxillary sinus, dentition is fine except for a lost crown) Neck: supple, other (single left upper cervical LN palpable, firm, non tender) Auscultation: bilateral: clear (has decreased BS at bases) Cardiovascular: other (s1 s2 normal, no m/r/g) Gastrointestinal: normoactive bowel sounds, soft, non-tender, hepatomegaly (felt about 4-5 cm below the costal margin, non tender, firm lower edge, no nodules felt) Integumentary: other (no rash) Extremities: other (minimal edema in both lower extremities) Musculoskeletal: other (no joint tenderness, including no point vertebral tenderness) Gait: normal gait normal mental status, non-focal exam, CN II-XII normal, motor strength normal and symmetric mood appropriate Prostate exam: nodular, firm, non tender. Cannot get to the upper border of prostate. No blood on the finger. No masses in and around the anal verge Results - Laboratory Findings CBC and BMP: 11/30/18 03:45 11/30/18 03:45 Abnormal lab findings: Abnormal Labs 11/28/18 11/28/18 11/28/18 20:45 20:45 22:04 WBC 12.2 H RBC 4.15 L Hgb Hct 40.0 L POC Hct 40.0 L Gran % 89.2 H Lymph % (Auto) 4.0 L Gran # 10.8 H Lymph # (Auto) 0.5 L ESR Carbon Dioxide Anion Gap Glucose 178 H POC Glucose 183 H Calcium POC WB Ioniz Calcium 1.10 L Phosphorus GGT AST 39 H ALT 45 H Lactate Dehydrogenase C-Reactive Protein Urine Protein 30 A Urine RBC 5 H CSF RBC CSF Total Nucleated Auto CSF Lymphocytes CSF Monocytes CSF Glucose CSF Total Protein 11/29/18 11/29/18 11/29/18 03:22 03:22 03:22 WBC RBC 3.60 L Hgb 11.9 L Hct 34.9 L POC Hct Gran % 88.5 H Lymph % (Auto) 5.7 L Gran # 9.6 H Lymph # (Auto) 0.6 L ESR 33 H Carbon Dioxide Anion Gap Glucose POC Glucose Calcium POC WB Ioniz Calcium Phosphorus GGT AST ALT Lactate Dehydrogenase C-Reactive Protein 4.5 H Urine Protein Urine RBC CSF RBC CSF Total Nucleated Auto CSF Lymphocytes CSF Monocytes CSF Glucose CSF Total Protein 11/29/18 11/29/18 11/29/18 03:22 09:33 09:33 WBC RBC Hgb Hct POC Hct Gran % Lymph % (Auto) Gran # Lymph # (Auto) ESR Carbon Dioxide Anion Gap Glucose 172 H POC Glucose Calcium 8.3 L POC WB Ioniz Calcium Phosphorus GGT AST 66 H ALT 66 H Lactate Dehydrogenase 255 H C-Reactive Protein Urine Protein Urine RBC CSF RBC 441 H 64 H CSF Total Nucleated Auto 15 H CSF Lymphocytes 21 L CSF Monocytes 8 L CSF Glucose 107 H CSF Total Protein 64 H 11/30/18 11/30/18 03:45 03:45 WBC RBC 3.83 L Hgb 12.6 L Hct 37.2 L POC Hct Gran % 83.9 H Lymph % (Auto) 9.3 L Gran # 8.4 H Lymph # (Auto) 0.9 L ESR Carbon Dioxide 20 L Anion Gap 17.0 H Glucose 158 H POC Glucose Calcium 8.5 L POC WB Ioniz Calcium Phosphorus 1.9 L GGT 73 H AST 80 H ALT 122 H Lactate Dehydrogenase 281 H C-Reactive Protein Urine Protein Urine RBC CSF RBC CSF Total Nucleated Auto CSF Lymphocytes CSF Monocytes CSF Glucose CSF Total Protein Microbiology: Microbiology 11/29/18 09:33 Cerebral Spinal Fluid - Cerebral Spinal Fluid Gram Stain - Final 11/29/18 09:33 Cerebral Spinal Fluid - Cerebral Spinal Fluid CSF Culture - Preliminary 11/28/18 20:45 Blood Blood Culture - Preliminary 11/28/18 20:53 Blood Blood Culture - Preliminary 11/28/18 22:04 Urine - Catheterized Urine Culture - Preliminary 11/29/18 01:09 Nasopharynx Respiratory Virus Panel (PCR) - Final 11/29/18 01:09 Nasopharynx Respiratory Panel (PCR) - Final 11/29/18 01:09 Nose MRSA (PCR) - Final Assessment and Plan - Narrative A/P Narrative: A: 1. Fever with absence of other classic symptoms of infection: - since 3 days, overall improving with antibiotics - On clinical exam, tenderness of left maxillary sinus, left testicle are concerning, enlarged liver suggest further investigation - blood Cx, urine Cx, Resp viral panel, CSF Cx neg so far - At this time differential is broad. From an ID stand-point; left maxillary sinusitis, orchitis, bacteremia, hepatitis could be contributing to pt's fever 2. Encephalopathy: likely delirium in setting of infection - CSF and clinical exam do not suggest bacterial or viral meninoencephalitis altjough extensive work up sent is pending - almost resolved with patient feeling and responding as if at his baseline 3. Hepatitis: uptrending AST, ALT - could be drug-induced, ? infection - no concerns for obstruction on imaging Recommendations: - Continue IV Vancomycin per pharmacy assisted dosing - Continue IV Zosyn 3.375 mg q6 hrs - repeat blood Cx (1 set) today - will deescalate based on Cx and work-up - Scrotal US to r/o any masses, fluid collections, orchitis - send Hepatitis A IgM, Hep B Surface Ag, Hep B surface Ab, Hep C antibody - If over next few days, fevers persist and work up ordered in inconclusive; will pursue whole body PET-CT or tagged WBC scan. If pt is afebrile tomorrow, IV Vanc and IV ZOsyn could be deescalated to PO Doxycycline 100 mg bid to complete a total of 7 day course (including the days he has received IV antibiotics) for maxillary sinusitis. - consider NSAIDs instead of Tylenol for fever relief, given ongoing AST/ALT elev will follow Kenan Edmondson MD Infectious diseases
--- NOTE | 2018-11-30 10:51 | Internal Med Progress Note ---
Medical - PN: Subj Patient information: Note initiated : 11/30/18 at 10:49 am Service Date, if different from initiated Date: [] Patient: Matias Arroyo a 77 y/o M admitted on 11/29/18 for weakness and lathargic. Chief Complaint: [] Interval history: Mr. Arroyo is a 77 year old M with history of diabetes coronary artery disease morbid obesity presents to the emergency room today brought in by family for altered mental status and fever. The patient was confused in the emergency room, had also received some Ativan and most of the history was provided by the patient's and his daughters. According to the family the patient was fine yesterday, he slept well but did wake up early in the morning around 3:00 sobbing after having a nightmare. The next morning he was okay but was tired and went to sleep early around 11:00 in the afternoon. He had a nap after waking up he was not himself he was having gait abnormalities, not been able to keep his balance very well, he was acting not normal, not answering to questions appropriately, he forgot to take his morning medications and took all the pills in the evening around 5 PM, he tried to go to sleep early at 6 PM by using just his facemask and not putting on the entire CPAP machine. He was confused febrile and therefore he was brought to the hospital for further evaluation. According to the family patient has not had any other complaints. 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 The patient has not had any sick contacts, the patient denies any photophobia or phonophobia, denies any headache, he denies any recent travel, denies any camping trips, he was outside I believe on Wednesday for a few hours 6-7 according to his daughter in the heat. In the emergency room on presentation patient was febrile, heart rate nearly 103, tachycardic with a heart rate ranging from 100-1 30, respirations ranging from 25-40 blood pressure stable 127/57 on my evaluation saturating 93% on room air. Labs showed WBC count of 12.2 hemoglobin 13.5 platelets 263, lactic acid 1.4 procalcitonin 0.11 sodium 136 potassium 4.0 creatinine 1.2 glucose 178 INR 1.1 UA negative for infection Chest x-ray negative for acute infiltrate Head CT was interpreted as negative by the [facility] Abdomen pelvis and chest CT was done which also was grossly negative according to the [facility] had some mild right side: Thickness possible colitis and some pleural thickening on the left side possible of pleural fibrosis question any malignancy did not appear to be a fluid collection. Given the fact that patient has high-grade fever, confusion tachypnea he does meet the screening for sepsis, however there is no obvious source of infection. He will be admitted to the ICU for further management 11/29 Patient seen and examined, sitting comfortably in bed, had a large bowel movement Fever was better this morning however fever is creeping back up again. Confusion is better however does not appear to be at baseline. Has no complaints no headache chest pain shortness of breath no fever no abdominal pain Will proceed with a lumbar puncture today 11/30 Patient seen and examined, sitting comfortably in the chair, no acute complaints or issues. He did not want his Bill catheter left in place which was discontinued. Patient still is febrile, 101 overnight. Patient had some sniffles yesterday, otherwise no obvious signs of infection or localizing complaints Work-up is negative including CSF Consult infectious disease today. Mental status is much better, patient is hemodynamically stable labs are stable, transfer to [facility] status Pertinent ROS: Denies headache, dizziness Denies chest pain, palpitations Denies cough or shortness of breath Denies abdominal pain, nausea or vomiting. - Constitutional Vitals: Vital Signs Temp Pulse Resp BP Pulse Ox 98.6 F 99 H 23 H 145/92 96 11/30/18 09:02 11/30/18 09:02 11/30/18 09:31 11/30/18 09:10 11/30/18 09:02 Period Temp Pulse Resp BP Sys/Alva Pulse Ox Last 24 Hr 98.5 F-101.9 F 74-114 13-36 95-200/49-113 95-100 Intake and Output 11/29/18 11/30/18 11/30/18 21:59 05:59 13:59 Intake Total 370 850 400 Output Total 1100 770 450 Balance -730 80 -50 Weight 333 lb 1.6 oz Intake & Output: Intake & Output 11/29/18 11/30/18 11/30/18 21:59 05:59 13:59 Intake Total 370 850 400 Output Total 1100 770 450 Balance -730 80 -50 Weight 333 lb 1.6 oz Intake: IV 50 550 Zosyn 3.375 gm In Dextrose 5% 50 50 in Water 50 ml @ 100 mls/hr IV Q6H [facility] Rx#:[id number] Vancomycin 1,500 mg In Sodium 500 Chloride 0.9% 500 ml @ 333.3 mls/hr IV Q12H [facility] Rx#: [id number] Oral 320 300 400 Output: Urine Catheter Amount 1100 770 450 Stool 0 Other: Meal Dinner snack Breakfast Percent of Meal Consumed 75% 75% Feeding Ability Assist with Tray Set Up Urine Appearance Clear Clear Uretheral (Bill) Clear Clear Urine Color Dark Yellow Dark Yellow Dark Yellow Uretheral (Bill) Dark Yellow Dark Yellow Dark Yellow Urine Odor Normal Normal Uretheral (Bill) Normal Stool Size Moderate Large Large Stool Color Brown Brown Brown Stool Consistency Soft Soft Soft # Bowel Movements 1 0 Exam: Constitutional; Afebrile, cooperative, alert, not in distress. Respiratory system: Air Entry equal on both sides, No crackles or wheezing, no rhonchi. CVS- Rate rhythm regular, S1,S2 heard, no gallop, no rub. 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 Medical - PN: Obj Da - Labs CBC & Chem 7: 11/30/18 03:45 11/30/18 03:45 Labs: Abnormal Lab Results 11/30/18 11/30/18 11/29/18 03:45 03:45 09:33 WBC RBC 3.83 L Hgb 12.6 L Hct 37.2 L POC Hct Gran % 83.9 H Lymph % (Auto) 9.3 L Gran # 8.4 H Lymph # (Auto) 0.9 L ESR Carbon Dioxide 20 L Anion Gap 17.0 H Glucose 158 H POC Glucose Calcium 8.5 L POC WB Ioniz Calcium Phosphorus 1.9 L GGT 73 H AST 80 H ALT 122 H Lactate Dehydrogenase 281 H C-Reactive Protein Urine Protein Urine RBC CSF RBC 64 H CSF Total Nucleated Auto CSF Lymphocytes 21 L CSF Monocytes 8 L CSF Glucose CSF Total Protein 11/29/18 11/29/18 11/29/18 09:33 03:22 03:22 WBC RBC 3.60 L Hgb 11.9 L Hct 34.9 L POC Hct Gran % 88.5 H Lymph % (Auto) 5.7 L Gran # 9.6 H Lymph # (Auto) 0.6 L ESR Carbon Dioxide Anion Gap Glucose 172 H POC Glucose Calcium 8.3 L POC WB Ioniz Calcium Phosphorus GGT AST 66 H ALT 66 H Lactate Dehydrogenase 255 H C-Reactive Protein Urine Protein Urine RBC CSF RBC 441 H CSF Total Nucleated Auto 15 H CSF Lymphocytes CSF Monocytes CSF Glucose 107 H CSF Total Protein 64 H 11/29/18 11/29/18 11/28/18 03:22 03:22 22:04 WBC RBC Hgb Hct POC Hct Gran % Lymph % (Auto) Gran # Lymph # (Auto) ESR 33 H Carbon Dioxide Anion Gap Glucose POC Glucose Calcium POC WB Ioniz Calcium Phosphorus GGT AST ALT Lactate Dehydrogenase C-Reactive Protein 4.5 H Urine Protein 30 A Urine RBC 5 H CSF RBC CSF Total Nucleated Auto CSF Lymphocytes CSF Monocytes CSF Glucose CSF Total Protein 11/28/18 11/28/18 20:45 20:45 WBC 12.2 H RBC 4.15 L Hgb Hct 40.0 L POC Hct 40.0 L Gran % 89.2 H Lymph % (Auto) 4.0 L Gran # 10.8 H Lymph # (Auto) 0.5 L ESR Carbon Dioxide Anion Gap Glucose 178 H POC Glucose 183 H Calcium POC WB Ioniz Calcium 1.10 L Phosphorus GGT AST 39 H ALT 45 H Lactate Dehydrogenase C-Reactive Protein Urine Protein Urine RBC CSF RBC CSF Total Nucleated Auto CSF Lymphocytes CSF Monocytes CSF Glucose CSF Total Protein Meds: Medications Acetaminophen (Tylenol) 650 mg PO Q4-6HP PRN PRN Reason: PAIN/FEVER > 101 Last Admin: 11/30/18 05:24 Dose: 650 mg Documented by: Albuterol/Ipratropium (Duoneb) 3 ml NEB Q4HP PRN PRN Reason: Wheezing Amlodipine Besylate (Norvasc) 5 mg PO HS [facility] Last Admin: 11/29/18 20:31 Dose: Not Given Documented by: Aspirin (Aspirin) 81 mg PO DAILY [facility] Last Admin: 11/30/18 08:08 Dose: 81 mg Documented by: Atorvastatin Calcium (Lipitor) 40 mg PO QHS [facility] Last Admin: 11/29/18 20:43 Dose: 40 mg Documented by: Dextrose (Dextrose 50%) 0 ml IV UD PRN PRN Reason: Hypoglycemia Diagnostic Test (Pha) (Accu-Chek) 1 each FS [facility] Last Admin: 11/30/18 06:58 Dose: 1 each Documented by: Docusate Sodium (Colace) 100 mg PO BID [facility] Last Admin: 11/30/18 08:08 Dose: Not Given Documented by: Doxazosin Mesylate (Cardura) 1 mg PO [facility] Last Admin: 11/29/18 20:38 Dose: Not Given Documented by: Famotidine (Pepcid) 20 mg IV [facility] Last Admin: 11/29/18 20:26 Dose: 20 mg Documented by: Glucose (Insta-Glucose) 15 gm PO PRN PRN PRN Reason: Hypoglycemia Hydromorphone HCl (Dilaudid) 0.5 mg IV Q2HP PRN PRN Reason: PAIN LEVEL > 6 Piperacillin Sod/Tazobactam (Sod 3.375 gm/ Dextrose) 50 mls @ 100 mls/hr IV Q6H [facility]; Protocol Last Admin: 11/30/18 05:16 Dose: 100 mls/hr Documented by: Vancomycin HCl 1,500 mg/ (Sodium Chloride) 500 mls @ 333.3 mls/hr IV Q12H [facility] Last Admin: 11/30/18 10:00 Dose: 333 mls/hr Documented by: Insulin Human Lispro (Humalog) 0 unit SQ [facility]; Protocol Last Admin: 11/30/18 07:00 Dose: 2 units Documented by: Naloxone HCl (Narcan) 0.1 mg IV Q2MIN PRN PRN Reason: Opiate Reversal Olanzapine (Zyprexa) 5 mg IM Q2HP PRN PRN Reason: Agitation Ondansetron HCl (Zofran) 4 mg IV Q4-6HP PRN PRN Reason: Nausea And Vomiting Promethazine HCl (Phenergan) 12.5 mg IV Q4-6HP PRN PRN Reason: Nausea And Vomiting Sodium Chloride (Saline Flush) 10 ml IV Q8 [facility] Last Admin: 11/30/18 05:20 Dose: 10 ml Documented by: Thiamine HCl (Vitamin B1) 100 mg PO [facility] Last Admin: 11/29/18 19:57 Dose: 100 mg Documented by: Vancomycin HCl (Vancomycin Per Pharmacy) 1 order IV UD [facility]; Protocol Vitamin D (Vitamin D3) 2,000 unit PO DAILY [facility] Last Admin: 11/30/18 08:08 Dose: 2,000 unit Documented by: Medical - PN: A/P - Time Spent With Patient Total time spent is greater than 50% in coordination of care (as documented) at patient's floor/unit and/or counseling patient: - Narrative A/P Narrative: A/P Fever, -Etiology unknown at this time, cultures eng so far , likely viral given runnynose, sniffles , mild sinusitis on CT -Blood and urine cultures have been sent, IV vancomycin and Zosyn for now. -viral panel neg -CSF neg, -ID consulted septic encephalopathy -improving. SIRS - workup as above Morbid Obesity bmi 46 -outpatient management DM -SSI insulin for glucose control CAD, s/p bypass -Trop neg, EKG has some changes, non specific, likely related to stress, resume home meds, which include statin, bb and asa HTN -BP stable, Resume home meds. DVT hep sq Full code Carb consistent, cardiac diet Xfer to med surg status Medical - PN: Qual - Stroke Symptom Onset Unknown: No - VTE Deep Vein Thrombosis/Pulmonary Embolism Present on Admission: No
[2018-11-30 11:21] LABS: Hepatitis A Antibody IgM NON REACTIVE (NEGATIVE); Hepatitis B Surface Antigen NEGATIVE (NEGATIVE); Hepatitis C Virus Antibody NON REACTIVE (NEGATIVE)
[2018-11-30 11:25] LABS: Hepatitis B Surface Antibody NEGATIVE (NEGATIVE)
--- NOTE | 2018-11-30 11:46 | Ultrasound Report ---
CLINICAL INFORMATION: Fever of unknown origin. Chronic testicular pain. TECHNIQUE: Grayscale and color flow Doppler spectral imaging COMPARISON: None. FINDINGS: Right testicle measures 4.1 x 2.6 x 2.4 cm. Normal homogeneous testicular parenchyma. Normal vascularity. No evidence for orchitis. No solid or cystic mass. Right epididymal head measures 0.7 x 0.7 x 1.5 cm. Normal vascularity. No evidence for epididymitis. Left testicle measures 4.0 x 2.6 x 2.4 cm. Normal homogeneous parenchyma. Vascularity is normal. No evidence for orchitis. No solid or cystic mass. Left epididymal head measures 0.7 x 0.6 x 1.3 cm. Normal vascularity. No evidence for epididymitis. No significant peritesticular fluid collection. IMPRESSION: Negative testicular ultrasound Interpreted and Authenticated by: Dante Krishnan 11/30/18
[2018-11-30] MEDS ORDERED: DEXTROSE 31 GM ORAL.SUSP PO PRN (12:15)
[2018-11-30] MEDS ORDERED: ACETAMINOPHEN 325 MG TABLET PO PRN (12:15)
[2018-11-30] MEDS ORDERED: IPRATROPIUM/ALBUTEROL 3 ML AMPUL.NEB NEB PRN (12:15)
[2018-11-30] MEDS ORDERED: LOSARTAN/HCTZ 50/12.5 TABLET PO SCH (12:15)
[2018-11-30] MEDS ORDERED: ONDANSETRON 4 MG/2 ML VIAL IV PRN (12:15)
[2018-11-30] MEDS ORDERED: PROMETHAZINE 25 MG/ML VIAL IV PRN (12:15)
[2018-11-30] MEDS ORDERED: NALOXONE HCL 0.4 MG/ML VIAL IV PRN (12:15)
[2018-11-30] MEDS ORDERED: OLANZapine 10 MG VIAL IM PRN (12:15)
[2018-11-30] MEDS ORDERED: HYDROmorphone 2 MG/ML VIAL IV PRN (12:15)
[2018-11-30] MEDS ORDERED: VANCOMYCIN PER PHARMACY IV SCH (12:15)
[2018-11-30] MEDS ORDERED: DEXTROSE 50% 50 ML VIAL IV PRN (12:15)
[2018-11-30] MEDS: HEPARIN 5,000 UNIT/ML VIAL SQ SCH ×2 (12:33→21:01)
[2018-11-30] MEDS ORDERED: DOXAZOSIN 1 MG TABLET PO SCH (21:00)
[2018-11-30] MEDS ORDERED: FAMOTIDINE/PF 20 MG/2 ML VIAL IV SCH (21:00)
[2018-11-30] MEDS ORDERED: ATORVASTATIN 20 MG TABLET PO SCH (21:00)
[2018-11-30] MEDS ORDERED: THIAMINE 100 MG TABLET PO SCH (21:00)
[2018-11-30] MEDS ORDERED: amLODIPine 5 MG TABLET PO SCH (21:00)
[2018-12-01 05:27] LABS: Basophils # (Auto) 0 K/mcL (0.0-0.3); Basophils % (Auto) 0.3 % (0.0-2.0); Eosinophils # (Auto) 0.2 K/mcL (0.0-0.7); Eosinophils % (Auto) 2.7 % (0.0-7.0); Granulocytes % (Auto) 70.9 % (38.0-78.0); Hematocrit 36.6 % (41.0-55.0); Hemoglobin 12.4 g/dL (13.5-16.5); Lymphocytes # (Auto) 1.2 K/mcL (1.5-4.8); Lymphocytes % (Auto) 17.2 % (15.5-49.0); Mean Cell Volume 97.2 fL (80.0-100.0); Mean Corpuscular HGB Conc 33.9 g/dL (31.0-36.0); Mean Platelet Volume 7.4 fL (7.4-10.4); Monocytes # (Auto) 0.6 K/mcL (0.1-0.9); Monocytes % (Auto) 8.9 % (1.0-12.0); Platelet Count 197 K/mcL (140-440); RBC 3.77 M/mcL (4.50-5.90); Red Cell Distribution Width 13.2 % (11.5-14.5); WBC 6.9 K/mcL (4.5-11.0)
[2018-12-01 05:51] LABS: ALT/SGPT 100 U/l (0-40); AST/SGOT 47 U/l (0-37); Albumin 3.4 gm/dL (3.2-5.2); Albumin/Globulin Ratio 1.2 (1.0-2.3); Alkaline Phosphatase 104 U/L (39-117); Bilirubin,Direct < 0.2 mg/dL (0.0-0.3); Bilirubin,Total 0.7 mg/dL (0.0-1.0); Blood Urea Nitrogen 12 mg/dl (8-23); Calcium 8.6 mg/dl (8.6-10.4); Carbon Dioxide 21 mmol/L (22-30); Chloride 105 mmol/L (96-108); Globulin 2.9 gm/dL (2.2-3.7); Glomerular Filtration Rate 73; Glucose 143 mg/dL (70-105); Lactate Dehydrogenase 291 U/L (94-250); Magnesium 1.9 mg/dL (1.6-2.5); Phosphorous 2.8 mg/dL (2.7-4.5); Potassium 3.7 mmol/L (3.3-5.1); Sodium 141 mmol/L (133-145); Triglycerides 127 mg/dl (<150); Uric Acid 3.8 mg/dL (2.5-8.0)
[2018-12-01] MEDS: 0.9 % SODIUM CHLORIDE 10 ML SYRINGE IV SCH (05:56)
[2018-12-01] MEDS: PIPERACILLIN SODIUM/TAZOBACTAM 3.375 GM in DEXTROSE 5% IN WATER 50 ML IV SCH ×2 (05:57→12:04)
[2018-12-01] MEDS: INSULIN LISPRO 1 UNIT/0.01 ML UNIT SQ SCH ×2 (06:58→12:14)
[2018-12-01] MEDS ORDERED: VITAMIN D3 1,000 UNIT TABLET PO SCH (09:00)
[2018-12-01] MEDS ORDERED: ASPIRIN 81 MG TAB.CHEW PO SCH (09:00)
[2018-12-01] MEDS ORDERED: HYDROCHLOROTHIAZIDE 12.5 MG CAPSULE PO SCH (09:00)
[2018-12-01] MEDS ORDERED: LOSARTAN 50 MG TABLET PO SCH (09:00)
[2018-12-01] MEDS ORDERED: SPIRONOLACTONE 25 MG TABLET PO SCH (09:00)
[2018-12-01] MEDS: HEPARIN 5,000 UNIT/ML VIAL SQ SCH (09:47)
[2018-12-01] MEDS: DOCUSATE SODIUM 100 MG CAPSULE PO SCH (09:48)
[2018-12-01] MEDS: VANCOMYCIN 1,500 MG in 0.9 % SODIUM CHLORIDE 500 ML IV SCH (09:56)
--- NOTE | 2018-12-01 10:51 | Discharge Summary ---
Medical - DS: Prov Patient information: Note initiated : 12/01/18 at 10:48 am Service Date, if different from initiated Date: [] Patient: Matias Arroyo 77 y/o M admitted on 11/29/18 for weakness and lathargic. Chief Complaint: [] Date of admission: 11/29/18 00:54 Discharge date: 12/01/18 Primary care physician: Nain Stoddard Consults: 11/28/18 Consult to Physician [CONS] Stat Comment: Consulting Provider: Sergey Singh Reason For Exam: Physician to Consult 11/30/18 08:04 Consult to Infectious Disease [CONS] Routine Comment: fever Consulting Provider: Kenan Edmondson Reason For Exam: Physician to Consult Discharging clinician: Sergey Singh Medical - DS: Meds - Discharge Medications Prescriptions: Amoxicillin/Potassium Clav [Augmentin] 875 mg PO Q12H #8 tab Active and Home Medications: Home Medications losartan 50 mg-hydrochlorothiazide 12.5 mg tablet 1 tab PO QDAY 04/19/17 [Hi story Confirmed 11/28/18 Last Taken Unknown] aspirin 81 mg tablet 81 mg PO QDAY 05/06/17 [History Confirmed 11/28/18 Last Taken Unknown] atorvastatin 40 mg tablet 40 mg PO QHS tab 05/06/17 [History Confirmed 11/28/18 Last Taken Unknown] cholecalciferol (vitamin D3) 2,000 unit capsule 2,000 unit PO DAILY cap 05/06/17 [History Confirmed 11/28/18 Last Taken Unknown] ibuprofen 200 mg tablet 200 mg PO BID tab 05/06/17 [History Confirmed 11/28/18 Last Taken Unknown] metoprolol succinate ER 25 mg tablet,extended release 24 hr 50 mg PO QDAY 05/06/17 [History Confirmed 11/28/18 Last Taken Unknown] saw palmetto 1,200 mg PO BID 05/06/17 [History Confirmed 11/28/18 Last Taken Unknown] spironolactone 25 mg tablet 25 mg PO QDAY 05/06/17 [History Confirmed 11/28/18 Last Taken Unknown] amlodipine 10 mg tablet 5 mg PO HS 02/15/18 [History Confirmed 11/28/18 Last Taken Unknown] lancets 30 gauge See Rx Instructions .ROUTE .COMPLEX #100 unspecified 10/31/18 [Rx Confirmed 11/28/18 Last Taken Unknown] doxazosin 1 mg tablet 1 mg PO HS 11/08/18 [History Confirmed 11/28/18 Last Taken Unknown] Fluticasone Propionate [Flonase] 2 spray INTRANASAL DAILYP PRN 11/28/18 [History Confirmed 11/28/18 Last Taken Unknown] metFORMIN HCL [Glucophage Xr] 1,000 mg PO HS 11/28/18 [History Confirmed 11/28/18 Last Taken Unknown] Blood Sugar Diagnostic [YupiCall Mini Glucose Test Str] 1 strip .ROUTE DAILY 11/29/18 [History Confirmed 11/29/18 Last Taken Unknown] Blood-Glu Meter,Cont/Transmit [Guardian Real-Time Glu Monitor] 1 each MISC DAILY 11/29/18 [History Confirmed 11/29/18 Last Taken Unknown] Medical - DS: Hosp Hospital course: Mr. Arroyo is a 77 year old M with history of diabetes coronary artery disease morbid obesity presents to the emergency room today brought in by family for altered mental status and fever. The patient was confused in the emergency room, had also received some Ativan and most of the history was provided by the patient's and his daughters. According to the family the patient was fine yesterday, he slept well but did wake up early in the morning around 3:00 sobbing after having a nightmare. The next morning he was okay but was tired and went to sleep early around 11:00 in the afternoon. He had a nap after waking up he was not himself he was having gait abnormalities, not been able to keep his balance very well, he was acting not normal, not answering to questions appropriately, he forgot to take his morning medications and took all the pills in the evening around 5 PM, he tried to go to sleep early at 6 PM by using just his facemask and not putting on the entire CPAP machine. He was confused febrile and therefore he was brought to the hospital for further evaluation. According to the family patient has not had any other complaints. 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 The patient has not had any sick contacts, the patient denies any photophobia or phonophobia, denies any headache, he denies any recent travel, denies any camping trips, he was outside I believe on Wednesday for a few hours 6-7 according to his daughter in the heat. In the emergency room on presentation patient was febrile, heart rate nearly 103, tachycardic with a heart rate ranging from 100-1 30, respirations ranging from 25-40 blood pressure stable 127/57 on my evaluation saturating 93% on room air. Labs showed WBC count of 12.2 hemoglobin 13.5 platelets 263, lactic acid 1.4 procalcitonin 0.11 sodium 136 potassium 4.0 creatinine 1.2 glucose 178 INR 1.1 UA negative for infection Chest x-ray negative for acute infiltrate Head CT was interpreted as negative by the [facility] Abdomen pelvis and chest CT was done which also was grossly negative according to the [facility] had some mild right side: Thickness possible colitis and some pleural thickening on the left side possible of pleural fibrosis question any malignancy did not appear to be a fluid collection. Given the fact that patient has high-grade fever, confusion tachypnea he does meet the screening for sepsis, however there is no obvious source of infection. He will be admitted to the ICU for further management 11/29 Patient seen and examined, sitting comfortably in bed, had a large bowel movement Fever was better this morning however fever is creeping back up again. Confusion is better however does not appear to be at baseline. Has no complaints no headache chest pain shortness of breath no fever no abdominal pain Will proceed with a lumbar puncture today 11/30 Patient seen and examined, sitting comfortably in the chair, no acute complaints or issues. He did not want his Bill catheter left in place which was discontinued. Patient still is febrile, 101 overnight. Patient had some sniffles yesterday, otherwise no obvious signs of infection or localizing complaints Work-up is negative including CSF Consult infectious disease today. Mental status is much better, patient is hemodynamically stable labs are stable, transfer to [facility] status 12/01 Patient seen and examined, no acute complaints. Very comfortably. Fever curve trending down afebrile overnight Patient has extensive work-up done and evaluation by infectious disease no obvious source of infection has been found. His head CT is negative when the mild sinusitis noted, abdomen chest and pelvis CT was negative, CSF is negative blood cultures have been negative he does not have a white count procalcitonin is quite low. At this time I feel comfortable discharging the patient on p.o. Augmentin as per ID recommendations. Likely mild sinusitis that caused the patient's symptoms Patient will be discharged home follow-up with PCP, no changes have been made to the patient's chronic home medication list Discharge diagnosis: sepsis, sinusitis - Time Spent with Patient Total time spent providing and/or coordinating discharge services: Greater than 30 minutes Medical - DS: Exam - Constitutional Vitals: Vital Signs Temp Pulse Resp BP BP Pulse Ox 12/01/18 08:00 97.9 F 16 154/95 97 12/01/18 06:43 96 H 20 98 12/01/18 03:45 97.4 F 98 H 24 H 153/74 96 11/30/18 22:58 97.8 F 104 H 24 H 154/94 95 11/30/18 19:02 98.3 F 92 H 24 H 153/86 97 11/30/18 11:41 98.0 F 89 20 136/76 96 Intake and Output 11/30/18 12/01/18 12/01/18 21:59 05:59 13:59 Intake Total 50 650 50 Output Total 250 Balance -200 650 50 Intake: IV 50 550 50 Zosyn 3.375 gm In Dextrose 5% 50 50 50 in Water 50 ml @ 100 mls/hr IV Q6H [facility] Rx#:[id number] Vancomycin 1,500 mg In Sodium 500 Chloride 0.9% 500 ml @ 333.3 mls/hr IV Q12H [facility] Rx#: [id number] Oral 100 Output: Void Amount 250 Other: Urine Appearance Clear Urine Color Dark Yellow Urine Odor Normal Stool Size Small Stool Color Brown Stool Consistency Liquid # Voids 1 1 # Bowel Movements 1 # of times incontinent of 1 Bowels Weight 334 lb 8 oz Additional comments: Constitutional; Afebrile, cooperative, alert, not in distress. Respiratory system: Air Entry equal on both sides, No crackles or wheezing, no rhonchi. CVS- Rate rhythm regular, S1,S2 heard, no gallop, no rub. 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 Medical - DS: Data Labs on day of discharge: Labs from last 24 hours 12/01/18 12/01/18 11/30/18 04:10 04:10 10:13 WBC 6.9 RBC 3.77 L Hgb 12.4 L Hct 36.6 L MCV 97.2 MCH 32.9 MCHC 33.9 RDW 13.2 Plt Count 197 MPV 7.4 Gran % 70.9 Lymph % (Auto) 17.2 [place] % (Auto) 8.9 Eos % (Auto) 2.7 Baso % (Auto) 0.3 Gran # 4.9 Lymph # (Auto) 1.2 L [place] # (Auto) 0.6 Eos # (Auto) 0.2 Baso # (Auto) 0 Sodium 141 Potassium 3.7 Chloride 105 Carbon Dioxide 21 L Anion Gap 15.0 BUN 12 Creatinine 1.0 GFR Calculation 73 Glucose 143 H Uric Acid 3.8 Calcium 8.6 Phosphorus 2.8 Magnesium 1.9 Total Bilirubin 0.7 Direct Bilirubin < 0.2 GGT 66 H AST 47 H ALT 100 H Alkaline Phosphatase 104 Lactate Dehydrogenase 291 H Total Protein 6.3 Albumin 3.4 Globulin 2.9 Albumin/Globulin Ratio 1.2 Triglycerides 127 Hepatitis A IgM Ab Non reactive Hep Bs Antigen Negative Hep Bs Antibody Negative Hepatitis C Antibody Non reactive Preliminary micro results at discharge 11/30/18 10:13 Blood Culture - Preliminary Blood 11/28/18 20:45 Blood Culture - Preliminary Blood 11/28/18 20:53 Blood Culture - Preliminary Blood Medical - DS: A/P - Patient/Caregiver Discharge Instructions Activity: increase activity as tolerated Diet: Cardiac, Consistent Carbohydrate Additional Instructions: Follow-up with your primary care provider in 1 week Take amoxicillin club folic acid 1 tablet twice a day for another 4 days Go to the emergency room if worsening clinical condition, fever chest pain shortness of breath or any other acute concern I have made no changes in your chronic home medications please take them as prescribed by your provider - Follow up Plan Follow up with: Nain Stoddard PA-C [Primary Care Provider] - Disposition: Home, Self-Care Prognosis: Fair Rehab Potential: Fair I certify that the patient requires SNF services: No Overall status at discharge: patient is progressing back to baseline Medical - DS: Qual - VTE Deep Vein Thrombosis/Pulmonary Embolism Present on Admission: No
[2018-12-09 11:23] LABS: HSV 1 IGG Index CSF <0.01; HSV 1 IGM Screen CSF NEGATIVE; HSV 2 IBM Screen CSF NEGATIVE; HSV 2 IGG Index CSF <0.01; LCM IGG <1:1; LCM IGM <1:1; Measles IGG AB CSF <1:64; Measles IGM AB CSF <1:1; VZV IGM (IFA) <1:1 titer; VZV Total AB (ACIF) <1:2 titer; WNV IGG Screen <1.30 index; WNV IGM Screen <0.90 index
== END 2018-12-01 13:05 | disposition home or self-care (01) | DRG 871 ==
LOC: ED 20:09 → ICU 11-29 00:54 → MEDSUR 11-30 15:15
PROVIDERS: ADMIT Internal Medicine; ATTEND Internal Medicine